=== PATIENT | male | born 1945 | race Two or more races ===

== ENCOUNTER 2020-02-16 07:09 | Outpatient (CLI) | payer OTHER | END 2020-02-16 07:16 | disposition home or self-care (01) | LOC: TOM 07:09 | PROVIDERS: ATTEND Internal Medicine | DX: N20.0 Calculus of kidney (principal); K66.0 Peritoneal adhesions (postprocedural) (postinfection); D50.0 Iron deficiency anemia secondary to blood loss (chronic); K57.90 Diverticulosis of intestine, part unspecified, without perforation or abscess without bleeding ==

== ENCOUNTER 2020-03-07 08:31 | Outpatient (CLI) | payer OTHER | END 2020-03-07 08:35 | disposition home or self-care (01) | LOC: RX STUDY 08:31 | PROVIDERS: ATTEND Internal Medicine | DX: D50.0 Iron deficiency anemia secondary to blood loss (chronic) (principal); K44.9 Diaphragmatic hernia without obstruction or gangrene ==